=== PATIENT | female | born 1990 | race Caucasian/White ===

== ENCOUNTER 2018-01-09 20:19 | Emergency (ER) | payer OTHER ==
[~2018-01-09] VITALS: Ht 175.3 cm; Wt 63.5 kg
[2018-01-09] MEDS ORDERED: Norco 5mg/325mg tab ORAL ONE (21:15)
[2018-01-09 21:35] VITALS: BP 105/74
--- NOTE | 2018-01-09 21:55 | Emergency Room Report ---
History of Present Illness General Chief Complaint: Lower Back Pain or Injury Source: Patient Present Illness HPI Is a 28 female with a history of compression fracture of her back from a sledding accident when she was younger. No require surgery. She presents with chief complaint of lower back pain. She was skiing for the first time and she fell onto her back. Now bringing up back pain especially when she sits for prolonged period time. Not out of 10. Sharp in nature. No incontinence of bowel or urine. No numbness. No radiation of the pain. No other complaint. [id number] medication not helping. Allergies: Coded Allergies: COCONUT (Verified Allergy, Unknown, 01/09/18) Cultivated Oat Pollen (Verified Allergy, Unknown, 01/09/18) Patient History Past Medical History: see triage record, old chart reviewed Past Surgical History: other Pertinent Family History: none Social History: Denies: smoking Last Menstrual Period: 01/08/18 Now: No Immunizations: other Reviewed Nursing Documentation: PMH: Agreed, PSxH: Agreed Review of Systems Eye: Denies: eye pain, blurred vision ENT: Denies: ear pain, nose congestion, throat swelling Respiratory: Denies: cough, shortness of breath Cardiovascular: Denies: chest pain, palpitations Gastrointestinal: Denies: abdominal pain, diarrhea, nausea, vomiting Musculoskeletal: Reports: back pain, Denies: joint pain Skin: Denies: rash Neurological: Denies: headache, numbness Endocrine: Denies: increased thirst, increased urine Hematologic/Lymphatic: Denies: easy bruising All Other Systems: negative except mentioned in HPI Physical Exam Vital Signs Date Time Temp Pulse Resp B/P (MAP) Pulse Ox O2 Delivery O2 Flow Rate FiO2 01/09/18 20:58 97.7 81 17 96 Room Air 97.7 vitals normal Sp02 EP Interpretation: reviewed, normal General Appearance: well appearing, no apparent distress, alert Head: normocephalic, atraumatic Eyes: bilateral eye PERRL, bilateral eye EOMI ENT: hearing grossly normal, normal pharynx Neck: full range of motion, supple, no meningismus Respiratory: chest non-tender, lungs clear, normal breath sounds Cardiovascular #1: regular rate, rhythm, no murmur Gastrointestinal: normal bowel sounds, non tender, no mass, no organomegaly, no bruit, non-distended Musculoskeletal: back normal - No deformity. No step-off. No anesthesia. Tenderness To lower lumbar area., gait/station normal, normal range of motion Psychiatric: mood/affect normal Skin: warm/dry Medical Decision Making Diagnostic Impression: Primary Impression: Strain of lumbar region Qualified Codes: S39.012A - Strain of muscle, fascia and tendon of lower back , initial encounter ER Course This patient presents with lower back pain from a fall. No fracture dislocation. No evidence of cauda equina syndrome, spinal epidural abscess or neoplastic process. We'll discharge home. Other X-Ray Diagnostic Results Other X-Ray Diagnostic Results : X-Ray ordered: Lumbar x-rays # of Views/Limited Vs Complete: 3 View Indication: Pain EP Interpretation: Yes Interpretation: no dislocation, no soft tissue swelling, no fractures Impression: No acute disease Electronically Signed by: Kevin Liu MD Last Vital Signs Date Time Temp Pulse Resp B/P (MAP) Pulse Ox O2 Delivery O2 Flow Rate FiO2 01/09/18 21:22 97.7 01/09/18 20:58 81 17 96 Room Air Status: improved Disposition: HOME, SELF-CARE Condition: Stable Scripts Ibuprofen* (MOTRIN*) 600 Mg Tablet 600 MG ORAL THREE TIMES A DAY, #30 TAB 0 Refills Prov: KEVIN LIU M.D. 01/09/18 Hydrocodone/Acetaminophen 5-325* (HYDROCODONE/ACETAMINOPHEN 5-325*) 1 Each Tablet 1 TAB ORAL Q6H Y for For Pain, #15 TAB 0 Refills Prov: KEVIN LIU M.D. 01/09/18 Referrals: Muna VALENZUELA,REFERRING (PCP) Patient Instructions: Lumbosacral Strain Additional Instructions: Followup with your DrMichel in 7 days. Return if worse. KEVIN LIU M.D. Jan 09, 2018 21:55
[2018-01-09] MEDS ORDERED: HYDROCODON-ACE1 EA15 ORAL (22:04)
[2018-01-09] MEDS ORDERED: IBUPROFEN600 MG ORAL (22:04)
[2018-01-09 23:33] VITALS: BP 105/74
--- NOTE | 2018-01-10 10:20 | Diagnostic Imaging Report ---
Indication: Back pain Comparison: None Findings: 3 views of the lumbar spine were obtained. Mild narrowing of intervertebral disks probably present. Facet osteophytes are present. No malalignment identified. No acute fracture definitely seen. Impression: Mild spondylosis. No acute injury appreciated.
== END 2018-01-09 22:00 | disposition home or self-care (01) ==
LOC: EMR 21:20
DX: S39.012A Strain of muscle, fascia and tendon of lower back, initial encounter (principal); W19.XXXA Unspecified fall, initial encounter; Y93.23 Activity, snow (alpine) (downhill) skiing, snowboarding, sledding, tobogganing and snow tubing; Y92.89 Other specified places as the place of occurrence of the external cause; M47.816 Spondylosis without myelopathy or radiculopathy, lumbar region
CPT/HCPCS: 72020; 81025; 99283